=== PATIENT | female | born 1985 | race Caucasian/White ===

== ENCOUNTER 2019-04-28 16:52 | Emergency (ER) | payer OTHER ==
[~2019-04-28] VITALS: Ht 165.1 cm; Wt 84.8 kg
--- OUTSIDE RECORDS SUMMARY | 2019-04-28 16:55 | XMS REPORT ---
Author Author [facility] Address Unknown Phone Unavailable Care Team Providers Care Doctor Of Osteopathy Name Role Phone Unavailable Unavailable Payers Payer Name Policy Type Policy Number Effective Date Expiration Date Problems This patient has no known problems. Allergies, Adverse Reactions, Alerts Allergy Name Allergy Type Status Severity Reaction(s) Onset Date Inactive Date Treating Clinician Comments No Known Allergies DA Active U 2018-09-07 00:00:00 Medications This patient has no known medications. Results Test Description Test Time Test Comments Text Results Atomic Results Result Comments - XR C-SPINE 2-3 VIEWS 2018-09-07 09:43:00 FAX: Armin Dan [phone] [place]: St: REG Name: RUSTY MERIDA [facility] : 1985 Age/S: 32/F [address] [place] [address] Unit #: [id number] Loc: [place] [address] Phys: Armin Dan Acct: [id number] Dis Date: Status: REG ER PHONE #: [phone] Exam Date: 09/07/2018926 FAX #: [phone] Reason: RUE neuralgia, pericervical tenderness EXAMS: CPT CODE: [id number] XR C-SPINE 2-3 VIEWS 16478 Study: - XR C-SPINE 2-3 VIEWS 09/07/2018 8:43 AM Patient Name: RUSTY MERIDA MR: [id number] DATE: 09/07/2018 8:43 AM : 1985; Age: 32 years y/o Female Ordering Physician: MADIE Espitia Clinical Indication: RUE neuralgia, pericervical tenderness Comparison: None Cervical spine, 3 Views: No acute fracture, dislocation, or suspicious focal osseous lesion. Straightening of the cervical spine is seen which may be secondary to spasm. No si gnificant degenerative changes involving the cervical spine. No prevertebral soft tissue swelling. If there is further concern, recommend follow-up radiographs or MRI for complete assessment. SL: [id number] at 0943 Reported and signed by: Kari Fitzpatrick D.O. CC: Armin RAMACHANDRAN Technologist: RT Jazzy(Liz) Trnscrd Date/Time/By: 09/07/2018 (0943) : By: [email or web address] Orig Print D/T: S: 09/07/2018 (8384) PAGE 1 Signed Report
[2019-04-28] MEDS ORDERED: LIDOCAINE VISC 2% SOLN 15 ML UDC PO ONE (17:30)
[2019-04-28] MEDS ORDERED: MAGNESIUM/ALUMINUM/SIMETHICONE 30 ML UDC PO ONE (17:30)
[2019-04-28 17:53] LABS: BASOPHILS # (AUTO) 0.1 (0.0-0.1); BASOPHILS % 0.6 % (0.0-1.0); EOSINOPHILS # (AUTO) 0.4 (0.0-0.4); EOSINOPHILS % 4.7 % (0.0-6.0); HEMATOCRIT 43.3 % (34.2-44.1); HEMOGLOBIN 14.2 g/dL (12.0-16.0); LYMPHOCYTES # (AUTO) 2.1 (1.0-3.2); LYMPHOCYTES % 24.8 % (18.0-39.1); MEAN CORPUSCULAR HEMOGLOBIN 28.9 pg (28-32); MEAN CORPUSCULAR HGB CONC 32.8 g/dL (31-35); MONOCYTES # (AUTO) 0.5 (0.2-0.8); MONOCYTES % 5.8 % (4.4-11.3); NEUTROPHILS # (AUTO) 5.4 (2.1-6.9); NEUTROPHILS % 63.7 % (38.7-80.0); PLATELET COUNT 252 x10e3/uL (140-360); RED BLOOD COUNT 4.92 x10e6/uL (3.6-5.1); RED CELL DISTRIBUTION WIDTH 12.2 % (11.7-14.4)
[2019-04-28 18:15] LABS: ALANINE AMINOTRANSFERASE 17 IU/L (0-55); ALBUMIN 3.5 g/dL (3.5-5.0); ALBUMIN/GLOBULIN RATIO 1.1 (0.8-2.0); ALKALINE PHOSPHATASE 63 IU/L (40-150); ANION GAP 10.4 mmol/L (8-16); BLOOD UREA NITROGEN 10 mg/dL (7-26); BUN/CREATININE RATIO 13 (6-25); CALCIUM 8.8 mg/dL (8.4-10.2); CARBON DIOXIDE 26 mmol/L (22-29); CHLORIDE 106 mmol/L (98-107); CREATININE, SERUM 0.79 mg/dL (0.57-1.11); EST GLOMERULAR FILTRATION RATE > 60 ML/MIN (60-); GLUCOSE 133 mg/dL (74-118); POTASSIUM 3.4 mmol/L (3.5-5.1); SODIUM 139 mmol/L (136-145)
[2019-04-28 18:56] LABS: AMYLASE 59 U/L (25-125); LIPASE 75 U/L (8-78)
[2019-04-28 19:23] LABS: BILIRUBIN,URINE NEGATIVE (NEGATIVE); CLARITY,URINE SL CLOUDY (CLEAR); COLOR,URINE YELLOW (YELLOW); KETONES,URINE NEGATIVE (NEGATIVE); LEUKOCYTE ESTERASE ,URINE NEGATIVE (NEGATIVE); NITRITE,URINE NEGATIVE (NEGATIVE); PROTEIN,URINE DIPSTICK NEGATIVE (NEGATIVE); URINE UROBILINOGEN 0.2 mg/dL (0.2 - 1)
[2019-04-28 19:26] LABS: BACTERIA,URINE FEW /HPF
[2019-04-28 19:27] LABS: AMORPHOUS SEDIMENT,URINE MODERATE (FEW)
--- NOTE | 2019-04-28 20:42 | Diagnostic Imaging Report ---
HISTORY: ^ABD PAIN ^[id number] ^1999 ^Y TECHNIQUE: Selected images from limited abdominal ultrasound provided for INTERPRETATION: COMPARISON: None. FINDINGS: Pancreas: Visualized portions are increased in echotexture without mass or ductal dilatation. Liver: Measures 14.4 cm in sagittal plane. The echotexture is increased. No mass in the visualized portions. Portal Vein: Measures 0.9 cm. Proper directional flow on spectral Doppler interrogation. Intrahepatic bile ducts: Normal Gallbladder: Present. Gallbladder polyp near the neck measures 4 mm. The gallbladder wall measures 3 mm. No pericholecystic fluid. Sonographic Luz sign is positive. CBD: 0.3 cm. Right Kidney: 12.1 cm in greatest length. The echotexture is normal. There is no evidence for mass. There is no collecting system dilatation or evidence of obstruction. No renal calculi evident. No adjacent free fluid or fluid collections. Visualized IVC and aorta are normal. There is no free fluid. IMPRESSION: 1. Steatosis. 2. Gallbladder polyp. No gallbladder wall thickening or pericholecystic fluid. No biliary ductal dilatation. Positive sonographic Luz sign is nonspecific. Signed by: Dr. Darling Mcneill MD on 04/28/2019 8:38 PM
[2019-04-28] MEDS ORDERED: BELLADONNA ALK/PHENOBARBITAL 5 ML UDC PO SCH (21:00)
[2019-04-28 22:33] VITALS: BP 132/84
== END 2019-04-28 21:00 | disposition home or self-care (01) ==
LOC: ER 16:52
DX: R10.11 Right upper quadrant pain (principal); K82.4 Cholesterolosis of gallbladder
CPT/HCPCS: 36415; 76705; 80053; 81001; 82150; 83690; 85025; 99284